=== PATIENT | male | born 1990 | race Caucasian/White ===

== ENCOUNTER 2018-07-08 23:45 | Emergency (ER) | payer BC, OTHER ==
--- NOTE | 2018-07-09 00:45 | PDOC ---
History of Present Illness - General Chief Complaint: Nausea Stated Complaint: NAUSEA/FATIGUE Time Seen by Provider: 07/09/18 00:37 Past History - Past Medical History Allergies/Adverse Reactions: Allergies Allergy/AdvReac Type Severity Reaction Status Date / Time No Known Allergies Allergy Verified 01/28/15 22:49 Home Medications: Ambulatory Orders NK [No Known Home Medication] 01/28/15 - Immunization History Immunization Up to Date: Yes - Suicide/Smoking/Psychosocial Hx Smoking History: Never smoked Number of Cigarettes Smoked Daily: 0 Cigars Per Day: 0 Hx Alcohol Use: No Drug/Substance Use Hx: No Substance Use Type: None *DC/Admit/Observation/Transfer - Discharge Dispostion Condition at time of disposition: Fair - Referrals - Patient Instructions - Post Discharge Activity
[2018-07-09 00:48] VITALS: BP 145/78; PULSE 98; TEMP 98.8; BMI 24.4
[2018-07-09] MEDS ORDERED: ONDANSETRON *ODT* 4 MG TABLET SL ONE (00:57)
[2018-07-09] MEDS ORDERED: ACETAMINOPHEN 500 MG TABLET (FP) PO ONE (01:59)
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
[2018-07-09] MEDS ORDERED: ACETAMINOPHEN 325 MG TABLET (FP) ONE (02:13)
[2018-07-09] MEDS ORDERED: ONDANSETRON *ODT* 4 MG TABLET ONE (02:13)
== END 2018-07-09 02:29 | disposition home or self-care (01) ==
LOC: JER 23:45
DX: S06.0X0A Concussion without loss of consciousness, initial encounter (principal); Y04.2XXA Assault by strike against or bumped into by another person, initial encounter; Y93.89 Activity, other specified; Y92.89 Other specified places as the place of occurrence of the external cause; Y99.8 Other external cause status; Y07.9 Unspecified perpetrator of maltreatment and neglect
CPT/HCPCS: 70450-TC; 70486-TC; 72125-TC; 99281-25; Q0162

== ENCOUNTER 2020-04-29 23:55 | Emergency (ER) | payer BC ==
[2020-04-30] VITALS: BP 126/75; PULSE 72; TEMP 98; BMI 23.7
--- OUTSIDE RECORDS SUMMARY | 2020-04-30 00:19 | XMS ---
:1990 Author Organization [facility] Support Name Relationship Address Phone EMPRESS Unavailable [address] [facility] [place] [address] G[employer] Unavailable [address] [place] [address] LORENZO FATHER [address] [facility] [place] [address] Re-disclosure Warning The records that you are about to access may contain information from federally- assisted alcohol or drug abuse programs. If such information is present, then the following federally mandated warning applies: This information has been disclosed to you from records protected by federal confidentiality rules (42 CFR part 2). The federal rules prohibit you from making any further disclosure of this information unless further disclosure is expressly permitted by the written consent of the person to whom it pertains or as otherwise permitted by 42 CFR part 2. A general authorization for the release of medical or other information is NOT sufficient for this purpose. The Federal rules restrict any use of the information to criminally investigate or prosecute any alcohol or drug abuse patient.The records that you are about to access may contain highly sensitive health information, the redisclosure of which is protected by Article 27-F of the [facility] Public Health law. If you continue you may haveaccess to information: Regarding HIV / AIDS; Provided by facilities licensed or operated by the [facility] Office of Mental Health; or Provided by the [facility] Office for People With Developmental Disabilities. If such information is present, then the following [facility] mandated warning applies: This information has been disclosed to you from confidential records which are protected by state law. State law prohibits you from making any further disclosure of this information without the specific written consent of the person to whom it pertains, or as otherwise permitted by law. Any unauthorized further disclosure in violation of state law may result in a fine or fdc sentence or both. A general authorization for the release of medical or other information is NOT sufficient authorization for further disclosure. Insurance Providers Payer name Policy type / Policy ID Covered Covered libertarian's Policy Plan Coverage type libertarian ID relationship to Mathur Information mathur
--- NOTE | 2020-04-30 01:01 | PDOC ---
Attending Attestation - Resident Resident Name: Jian Fuentes - ED Attending Attestation I have performed the following: I have examined & evaluated the patient, The case was reviewed & discussed with the resident, I agree w/resident's findings & plan - HPI HPI: 04/30/20 01:12 see resident hpi - Physicial Exam PE: 04/30/20 01:12 see resident exam - Medical Decision Making 04/30/20 01:13 29-year-old male with right wrist pain status post lifting heavy object while training for [employer] now with reinjury after doing CPR X-ray shows no displaced fracture Patient is point tender over the lateral distal ulna with no hand tenderness, no snuffbox tenderness and no distal radius tenderness n/v in tact There is no central dorsal or volar wrist tenderness Will place in volar splint, orthopedic follow-up 04/30/20 01:15 Discharge - Discharge Information Problems reviewed: Yes Clinical Impression/Diagnosis: Right wrist injury - Follow up/Referral - Patient Discharge Instructions - Post Discharge Activity
--- NOTE | 2020-04-30 01:12 | PDOC ---
History of Present Illness - General History Source: Patient Exam Limitations: No Limitations <Jian Fuentes - Last Filed: 04/30/20 01:02> <Alicia Recinos - Last Filed: 04/30/20 01:28> - General Chief Complaint: Pain Stated Complaint: R WRIST SPRAIN Time Seen by Provider: 04/30/20 00:46 Past History - Medical History COPD: No - Immunization History Immunization Up to Date: Yes - Psycho-Social/Smoking History Smoking History: Current some day smoker Have you smoked in the past 12 months: Yes Number of Cigarettes Smoked Daily: 4 Cigars Per Day: 0 Information on smoking cessation initiated: No <Jian Fuentes - Last Filed: 04/30/20 01:02> <Alicia Recinos - Last Filed: 04/30/20 01:28> - Medical History Allergies/Adverse Reactions: Allergies Allergy/AdvReac Type Severity Reaction Status Date / Time No Known Allergies Allergy Verified 04/30/20 00:00 Home Medications: Ambulatory Orders NK [No Known Home Medication] 01/28/15 Review of Systems - Review of Systems Constitutional: No: Chills, Fever Neurological: No: Numbness, Weakness <Stewart Fuentesad - Last Filed: 04/30/20 01:02> *Physical Exam - Vital Signs Last Vital Signs Temp Pulse Resp BP Pulse Ox 98 F 72 18 126/75 99 04/29/20 23:57 04/29/20 23:57 04/29/20 23:57 04/29/20 23:57 04/29/20 23:57 - Physical Exam Respiratory/Chest: positive: Lungs Clear, Normal Breath Sounds Cardiovascular: positive: Regular Rhythm, Regular Rate, S1, S2 Gastrointestinal/Abdominal: positive: Normal Bowel Sounds, Soft. negative: Tender Extremity: positive: Other (Pulses 2+) Neurologic: positive: Other (Muscle strength +5/5). negative: Numbness <GinaJian - Last Filed: 04/30/20 01:02> - Vital Signs Last Vital Signs Temp Pulse Resp BP Pulse Ox 98 F 72 18 126/75 99 04/29/20 23:57 04/29/20 23:57 04/29/20 23:57 04/29/20 23:57 04/29/20 23:57 <Alicia Recinos - Last Filed: 04/30/20 01:28> Medical Decision Making - Medical Decision Making 04/30/20 01:04 29 year old male patient with no significant past medical history presents to the emergency room for right wrist pain. The pain started 04/18/2020 when he was lifting a strength-measuring device. He felt a "popping feeling" in the ulnar side of his right wrist. The pain is a non-radiating pain in the ulnar side of his right wrist that is 2/10 when he doesn't move his wrist but goes up to a 7/10 pain when he uses his wrist. He has no numbness in his hand or fingers. He went to an urgent clinic, where they told them that he has a strained wrist, but did not do an x-ray. PMHx: Denies SHx: Left knee meniscus repair Social Hx: Smokes 2 cigarettes per week (patient encouraged to quit smoking), social alcohol use, denies drug use Allergies: Denies PCP: Denies A/P Assessment: - r/o wrist fracture - likely wrist sprain Plan: - x-ray right wrist - tylenol or nsaids for pain <Jian Fuentes - Last Filed: 04/30/20 01:02> Discharge <Jian Fuentes - Last Filed: 04/30/20 01:02> - Discharge Information Problems reviewed: Yes - Admission No <Alicia Recinos - Last Filed: 04/30/20 01:28> - Discharge Information Clinical Impression/Diagnosis: Right wrist injury Condition: Stable Disposition: HOME - Follow up/Referral Referrals: Jai Cohen MD [Staff Physician] - - Patient Discharge Instructions Patient Printed Discharge Instructions: Wrist Sprain, How to Take Care of Your Splint - Post Discharge Activity Work/Back to School Note: Back to Work
== END 2020-04-30 01:37 | disposition home or self-care (01) ==
LOC: JER 23:55
DX: S69.91XA Unspecified injury of right wrist, hand and finger(s), initial encounter (principal)
CPT/HCPCS: 73110-TC-RT-FY; 99284-25